=== PATIENT | female | born 1935 | race Caucasian/White ===

== ENCOUNTER 2018-06-21 22:34 | Emergency (ER) | payer BC, OTHER ==
[~2018-06-21] VITALS: Ht 165.1 cm; Wt 60.3 kg
[~2018-06-21 22:34] MED LIST: BISA-79 PO; DIPH1TAB PO; ESCI10TA55 PO; LIDO700A TP; MEGE400O PO; MEMA10TA PO; MIRT15TA7 PO; OXYC-451 PO; OXYC10TA59 PO; PANT40TA4 PO; TRAM50TA2 PO
[2018-06-21] MEDS ORDERED: FLUT50DI IH (22:48)
[2018-06-21] MEDS ORDERED: ACET-2154 PO (22:48)
[2018-06-21] MEDS ORDERED: DOCU-141 PO (22:48)
[2018-06-21] MEDS ORDERED: ALEN70TA45 PO (22:48)
[2018-06-21] MEDS ORDERED: MAGN400O6 PO (22:48)
[2018-06-21] MEDS ORDERED: DONE10TA44 PO (22:48)
[2018-06-21] MEDS ORDERED: ONDA4TAB5 PO (22:48)
[2018-06-21] MEDS ORDERED: OXYC-128 PO (22:48)
[2018-06-21] MEDS ORDERED: VITA400C24 PO (22:48)
[2018-06-21] MEDS ORDERED: ERGO500040 PO (22:48)
[2018-06-21] MEDS ORDERED: MIRT7.5T10 PO (22:48)
[2018-06-21] MEDS ORDERED: BISA10SU8 RC (22:48)
[2018-06-21] MEDS ORDERED: ASPI-612 PO (22:48)
[2018-06-21] MEDS ORDERED: FISH400C2 PO (22:48)
[2018-06-21] MEDS ORDERED: FEXO180T94 PO (22:48)
[2018-06-21] MEDS ORDERED: CICL6.6S5 TP (22:48)
[2018-06-21] MEDS ORDERED: CETI-102 PO (22:48)
[2018-06-21] MEDS ORDERED: DULO20CA PO (22:48)
[2018-06-21] MEDS ORDERED: CALC-20 PO (22:48)
[2018-06-21] MEDS ORDERED: MULT1TAB73 PO (22:48)
[2018-06-21] MEDS ORDERED: MEMA10TA PO (22:48)
--- NOTE | 2018-06-21 22:48 | NUR ---
PT BIB [facility] FROM [facility]. PER FACILITY REPORT, PT HAS BEEN HAVING GENERALIZED WEAKNESS W/ POOR PO INTAKE SINCE MONDAY (06/18/18). VSS. PT DENIES PAIN, C/P, SOB, N/V/D, DIZZINESS, HEADACHE.
--- NOTE | 2018-06-21 22:52 | NUR ---
TOBI CRUZ AT BEDSIDE FOR MSE.
[2018-06-21 23:26] LABS: BASOPHILS # (AUTO) 0.1 K/uL (0.0-8.0); BASOPHILS % (AUTO) 0.4 % (0.0-2.0); EOSINOPHILS # (AUTO) 0.2 K/uL (0.0-0.7); EOSINOPHILS % (AUTO) 1.3 % (0.0-7.0); HEMATOCRIT 40.8 % (31.2-41.9); HEMOGLOBIN 13.9 g/dL (10.9-14.3); LYMPHOCYTES # (AUTO) 4.1 K/uL (20.0-40.0); LYMPHOCYTES % (AUTO) 22.4 % (20.5-51.5); MEAN CORPUSCULAR HGB CONC 34 g/dL (32.3-35.6); MONOCYTES # (AUTO) 1.7 K/uL (2.0-10.0); MONOCYTES % (AUTO) 9.2 % (0.0-11.0); NEUTROPHILS # (AUTO) 12.1 K/uL (1.8-8.9); NEUTROPHILS % (AUTO) 66.7 % (38.5-71.5); PLATELET COUNT (AUTO) 252 K/uL (179-408); RED BLOOD CELL COUNT(AUTO) 4.48 MIL/uL (3.63-4.92); WHITE BLOOD COUNT (AUTO) 18.2 K/uL (3.8-11.8)
[2018-06-21 23:28] LABS: CARBON DIOXIDE 29 mmol/L (21-32); CHLORIDE 100 mmol/L (98-107); CREATININE 0.9 mg/dL (0.6-1.3); GLUCOSE 121 mg/dL (74-106); POTASSIUM 3.6 mmol/L (3.5-5.1); UREA NITROGEN, BLOOD 23 mg/dL (7-18)
[2018-06-22] MEDS ORDERED: IV NORMAL SALINE 500 ML BAG IV ONE (01:00)
[2018-06-22 01:14] LABS: *BILIRUBIN,URIN NEGATIVE (NEGATIVE); *BLOOD, URINE NEGATIVE (NEGATIVE); *CLARITY,URINE CLEAR (CLEAR); *COLOR,URINE YELLOW (YELLOW); *KETONES,URINE NEGATIVE (NEGATIVE); *PROTEIN,URINE NEGATIVE (NEGATIVE); LEUKOCYTE ESTERASE ,URINE TRACE (NEGATIVE); NITRITE, URINE NEGATIVE (NEGATIVE); UGLUCOSE NEGATIVE (NEGATIVE)
[2018-06-22 01:18] LABS: BACTERIA,URINE NONE SEEN /HPF (NONE SEEN); RBC,URINE 0-3 /HPF (0-3); SQUAMOUS EPITHELIAL CELL,UR FEW /HPF (NONE SEEN); WBC,URINE 0-3 /HPF (0-3)
--- NOTE | 2018-06-22 01:30 | NUR ---
CHILD SUPPORT SPECIALIST AT BEDSIDE.
[2018-06-22 01:46] LABS: BILIRUBIN,DIRECT 0.2 mg/dL (0.0-0.2); BILIRUBIN,TOTAL 0.6 mg/dL (0.2-1.0); TOTAL PROTEIN, SERUM 6.5 g/dL (6.4-8.2)
--- NOTE | 2018-06-22 02:48 | NUR ---
Pt sleeping in bed comfortably with eyes closed. No acute distress noted. Will ctm.
[2018-06-22 03:28] LABS: BASOPHILS # (AUTO) 0.1 K/uL (0.0-8.0); BASOPHILS % (AUTO) 0.4 % (0.0-2.0); EOSINOPHILS # (AUTO) 0.2 K/uL (0.0-0.7); EOSINOPHILS % (AUTO) 1.5 % (0.0-7.0); HEMATOCRIT 39.2 % (31.2-41.9); HEMOGLOBIN 13.2 g/dL (10.9-14.3); LYMPHOCYTES # (AUTO) 3.2 K/uL (20.0-40.0); LYMPHOCYTES % (AUTO) 21.4 % (20.5-51.5); MEAN CORPUSCULAR HEMOGLOBIN 30.8 uug (24.7-32.8); MEAN CORPUSCULAR HGB CONC 34 g/dL (32.3-35.6); MEAN CORPUSCULAR VOLUME 91.1 fL (75.5-95.3); MONOCYTES # (AUTO) 1.7 K/uL (2.0-10.0); MONOCYTES % (AUTO) 11.4 % (0.0-11.0); NEUTROPHILS # (AUTO) 9.7 K/uL (1.8-8.9); NEUTROPHILS % (AUTO) 65.3 % (38.5-71.5); PLATELET COUNT (AUTO) 209 K/uL (179-408); WHITE BLOOD COUNT (AUTO) 14.9 K/uL (3.8-11.8)
--- NOTE | 2018-06-22 03:45 | NUR ---
Called [facility] to transfer patient back to [facility]. ETA 90MINS. TRIP #[id number]
--- NOTE | 2018-06-22 04:07 | NUR ---
Pt pulled out IV site. Inner cannula intact.
--- NOTE | 2018-06-22 04:41 | NUR ---
Pt sleeping in bed with eyes closed. Respirations even + unlabored. NAD noted. Pending amb[facility] to transfer pt back to [facility].
--- NOTE | 2018-06-22 06:01 | NUR ---
[facility] unit [facility] here to transfer pt back to [facility]. Pt is awake, alert, oriented. Patient discharged to home in stable conditon. Written and verbal after care instructions given. Patient verbalizes understanding of instructions.
[2018-06-22 06:03] VITALS: BP 142/78
[2018-06-22] MEDS ORDERED: ERGO2000 PO (23:49)
[2018-06-22] MEDS ORDERED: BISA10SU61 RC (23:49)
[2018-06-22] MEDS ORDERED: FEXO180T94 PO (23:49)
[2018-06-22] MEDS ORDERED: ONDA4TAB5 PO (23:49)
[2018-06-23] MEDS ORDERED: FLUT9.9S NS (14:55)
== END 2018-06-22 06:05 | disposition home or self-care (01) ==
LOC: ER 22:36
DX: E86.0 Dehydration (principal); Z90.710 Acquired absence of both cervix and uterus; Z79.82 Long term (current) use of aspirin; Z79.51 Long term (current) use of inhaled steroids; Z79.891 Long term (current) use of opiate analgesic; Z79.899 Other long term (current) drug therapy
CPT/HCPCS: 36415; 71045; 85025; 93005; A4663; J7040

== ENCOUNTER 2018-06-22 20:50 | Inpatient (IN) | payer BC, OTHER ==
[~2018-06-22] VITALS: Ht 152.4 cm; Wt 59.4 kg
[~2018-06-22 20:50] MED LIST changes: +ACET-2154 PO; +ALEN70TA45 PO; +ASPI-612 PO; +BISA10SU8 RC; +CALC-20 PO; +CETI-102 PO; +CICL6.6S5 TP; +DOCU-141 PO; +DONE10TA44 PO; +DULO20CA PO; +ERGO500040 PO; +FEXO180T94 PO; +FISH400C2 PO; +FLUT50DI IH; +MAGN400O6 PO; +MIRT7.5T10 PO; +MULT1TAB73 PO; +ONDA4TAB5 PO; +OXYC-128 PO; +VITA400C24 PO
[2018-06-22 21:55] LABS: BASOPHILS # (AUTO) 0.1 K/uL (0.0-8.0); BASOPHILS % (AUTO) 0.4 % (0.0-2.0); EOSINOPHILS % (AUTO) 0.3 % (0.0-7.0); HEMATOCRIT 44.4 % (31.2-41.9); HEMOGLOBIN 15.2 g/dL (10.9-14.3); LYMPHOCYTES # (AUTO) 1.9 K/uL (20.0-40.0); LYMPHOCYTES % (AUTO) 12.8 % (20.5-51.5); MEAN CORPUSCULAR HEMOGLOBIN 31.3 uug (24.7-32.8); MEAN CORPUSCULAR HGB CONC 34 g/dL (32.3-35.6); MEAN CORPUSCULAR VOLUME 91.4 fL (75.5-95.3); MONOCYTES # (AUTO) 1.1 K/uL (2.0-10.0); MONOCYTES % (AUTO) 7.8 % (0.0-11.0); NEUTROPHILS # (AUTO) 11.5 K/uL (1.8-8.9); NEUTROPHILS % (AUTO) 78.7 % (38.5-71.5); PLATELET COUNT (AUTO) 285 K/uL (179-408); RED BLOOD CELL COUNT(AUTO) 4.86 MIL/uL (3.63-4.92); WHITE BLOOD COUNT (AUTO) 14.6 K/uL (3.8-11.8)
[2018-06-22 22:04] LABS: CARBON DIOXIDE 30 mmol/L (21-32); CHLORIDE 98 mmol/L (98-107); CREATININE 0.9 mg/dL (0.6-1.3); GLUCOSE 156 mg/dL (74-106); POTASSIUM 3.9 mmol/L (3.5-5.1); UREA NITROGEN, BLOOD 23 mg/dL (7-18)
[2018-06-22 22:10] LABS: ALANINE AMINOTRANSFERASE 22 U/L (14-59); ALKALINE PHOSPHATASE 81 U/L (50-136); ASPARTATE AMINOTRANSFERASE 18 U/L (15-37); BILIRUBIN,DIRECT 0.2 mg/dL (0.0-0.2); BILIRUBIN,TOTAL 0.6 mg/dL (0.2-1.0); TOTAL PROTEIN, SERUM 7.6 g/dL (6.4-8.2)
[2018-06-22 22:23] LABS: *BILIRUBIN,URIN NEGATIVE (NEGATIVE); *BLOOD, URINE NEGATIVE (NEGATIVE); *CLARITY,URINE CLEAR (CLEAR); *COLOR,URINE YELLOW (YELLOW); *KETONES,URINE 1+ (NEGATIVE); *PROTEIN,URINE NEGATIVE (NEGATIVE); LEUKOCYTE ESTERASE ,URINE NEGATIVE (NEGATIVE); NITRITE, URINE NEGATIVE (NEGATIVE); UGLUCOSE NEGATIVE (NEGATIVE)
[2018-06-22 22:28] LABS: MUCUS,URINE MANY /LPF (0-FEW); RBC,URINE 0-3 /HPF (0-3); WBC,URINE 0-3 /HPF (0-3)
[2018-06-22] MEDS ORDERED: ONDA4TAB5 PO (23:49)
[2018-06-22] MEDS ORDERED: ERGO2000 PO (23:49)
[2018-06-22] MEDS ORDERED: FEXO180T94 PO (23:49)
[2018-06-22] MEDS ORDERED: BISA10SU61 RC (23:49)
[2018-06-23 01:00] VITALS: BP 166/73
[2018-06-23 01:15] VITALS: BP 137/90
[2018-06-23 05:06] VITALS: BP 138/73
[2018-06-23] MEDS ORDERED: ONDANSETRON HCL 4 MG TABLET PO PRN (09:30)
[2018-06-23] MEDS ORDERED: TRAMADOL HCL 50 MG TABLET PO PRN (09:30)
[2018-06-23] MEDS: VITAMIN E 400 UNITS CAPSULE PO SCH ×2 (09:30→13:56)
[2018-06-23] MEDS ORDERED: BISACODYL 10 MG SUPP.RECT RC PRN (09:30)
[2018-06-23] MEDS ORDERED: OXYCODONE/APAP 5-325 MG TABLET PO PRN ×3 (09:30→15:30)
[2018-06-23] MEDS ORDERED: FEXOFENADINE HCL 180 MG TABLET PO PRN (09:30)
[2018-06-23] MEDS ORDERED: MAGNESIUM HYDROXIDE 30 ML LIQUID UDC PO PRN (09:30)
[2018-06-23] MEDS ORDERED: ACETAMINOPHEN 325 MG TABLET PO PRN (09:30)
[2018-06-23] MEDS ORDERED: HOME MED MISCELLANEOUS XX SCH (10:15)
[2018-06-23 10:25] LABS: BASOPHILS # (AUTO) 0.1 K/uL (0.0-8.0); BASOPHILS % (AUTO) 0.4 % (0.0-2.0); EOSINOPHILS % (AUTO) 0.2 % (0.0-7.0); HEMATOCRIT 43.9 % (31.2-41.9); HEMOGLOBIN 14.8 g/dL (10.9-14.3); LYMPHOCYTES # (AUTO) 2.1 K/uL (20.0-40.0); LYMPHOCYTES % (AUTO) 9.9 % (20.5-51.5); MEAN CORPUSCULAR HEMOGLOBIN 30.7 uug (24.7-32.8); MEAN CORPUSCULAR HGB CONC 34 g/dL (32.3-35.6); MEAN CORPUSCULAR VOLUME 91.2 fL (75.5-95.3); MONOCYTES % (AUTO) 9.7 % (0.0-11.0); NEUTROPHILS # (AUTO) 16.8 K/uL (1.8-8.9); NEUTROPHILS % (AUTO) 79.8 % (38.5-71.5); PLATELET COUNT (AUTO) 283 K/uL (179-408); RED BLOOD CELL COUNT(AUTO) 4.81 MIL/uL (3.63-4.92); WHITE BLOOD COUNT (AUTO) 21.1 K/uL (3.8-11.8)
[2018-06-23] MEDS: DULOXETINE 20 MG CAPSULE.DR PO SCH (10:29)
[2018-06-23] MEDS: MEMANTINE HCL 10 MG TABLET PO SCH (10:29)
[2018-06-23] MEDS: CALCIUM CARB/VITAMIN D 500MG-200UNITS TABLET PO SCH (10:29)
[2018-06-23] MEDS: ASPIRIN 325 MG TABLET PO SCH (10:29)
[2018-06-23] MEDS: DONEPEZIL 10 MG TABLET PO SCH ×2 (10:30→17:16)
[2018-06-23] MEDS: CETIRIZINE HCL 10 MG TABLET PO SCH (10:30)
[2018-06-23] MEDS: MULTIVITAMINS,THERAPEUTIC TABLET PO SCH (10:30)
[2018-06-23] MEDS: PANTOPRAZOLE SODIUM 40 MG TABLET.DR PO SCH (10:32)
[2018-06-23 11:08] VITALS: BP 131/79
[2018-06-23 11:23] LABS: CARBON DIOXIDE 27 mmol/L (21-32); CHLORIDE 98 mmol/L (98-107); CREATININE 0.7 mg/dL (0.6-1.3); GLUCOSE 122 mg/dL (74-106); MAGNESIUM 2.1 mg/dL (1.8-2.4); POTASSIUM 3.3 mmol/L (3.5-5.1); UREA NITROGEN, BLOOD 24 mg/dL (7-18)
[2018-06-23] MEDS ORDERED: FLUT9.9S NS (14:55)
[2018-06-23 15:36] VITALS: BP 150/85
[2018-06-23] MEDS: FLUTICASONE PROP NASAL SPRAY 16 GM BOTTLE NS SCH (17:16)
[2018-06-23] MEDS ORDERED: MIRTAZAPINE 15 MG TABLET PO SCH (18:00)
[2018-06-23] MEDS: MIRTAZAPINE 15 MG TABLET PO SCH (21:02)
[2018-06-23 21:09] VITALS: BP 130/70
[2018-06-23] MEDS ORDERED: CEFEPIME HCL 1 G VIAL ONE (22:04)
[2018-06-23] MEDS: CEFEPIME HCL 1 G in IV DEXTROSE 5% 50 ML IV SCH (22:32)
[2018-06-24 05:59] VITALS: BP 106/76
[2018-06-24] MEDS ORDERED: CEFEPIME HCL 1 G VIAL ONE (06:02)
[2018-06-24] MEDS: CEFEPIME HCL 1 G in IV DEXTROSE 5% 50 ML IV SCH ×2 (06:21→17:22)
[2018-06-24] MEDS: PANTOPRAZOLE SODIUM 40 MG TABLET.DR PO SCH (06:21)
[2018-06-24 07:56] LABS: BASOPHILS % (AUTO) 0.2 % (0.0-2.0); EOSINOPHILS % (AUTO) 0.3 % (0.0-7.0); HEMOGLOBIN 13.1 g/dL (10.9-14.3); LYMPHOCYTES # (AUTO) 2.3 K/uL (20.0-40.0); LYMPHOCYTES % (AUTO) 15.4 % (20.5-51.5); MEAN CORPUSCULAR HEMOGLOBIN 30.5 uug (24.7-32.8); MEAN CORPUSCULAR HGB CONC 33 g/dL (32.3-35.6); MEAN CORPUSCULAR VOLUME 92.2 fL (75.5-95.3); MONOCYTES # (AUTO) 2.1 K/uL (2.0-10.0); MONOCYTES % (AUTO) 13.6 % (0.0-11.0); NEUTROPHILS # (AUTO) 10.7 K/uL (1.8-8.9); NEUTROPHILS % (AUTO) 70.5 % (38.5-71.5); PLATELET COUNT (AUTO) 260 K/uL (179-408); RED BLOOD CELL COUNT(AUTO) 4.28 MIL/uL (3.63-4.92)
[2018-06-24 08:07] LABS: CARBON DIOXIDE 27 mmol/L (21-32); CHLORIDE 103 mmol/L (98-107); CREATININE 0.6 mg/dL (0.6-1.3); GLUCOSE 119 mg/dL (74-106); PHOSPHOROUS 2.9 mg/dL (2.5-4.9); POTASSIUM 3.4 mmol/L (3.5-5.1); UREA NITROGEN, BLOOD 25 mg/dL (7-18)
[2018-06-24] MEDS: FLUTICASONE PROP NASAL SPRAY 16 GM BOTTLE NS SCH ×3 (09:00→17:00)
[2018-06-24 09:15] LABS: HEMATOCRIT 39.5 % (31.2-41.9); WHITE BLOOD COUNT (AUTO) 15.2 K/uL (3.8-11.8)
[2018-06-24] MEDS: ASPIRIN 325 MG TABLET PO SCH (09:42)
[2018-06-24] MEDS: DONEPEZIL 10 MG TABLET PO SCH ×2 (09:42→17:22)
[2018-06-24] MEDS: CALCIUM CARB/VITAMIN D 500MG-200UNITS TABLET PO SCH (09:43)
[2018-06-24] MEDS: CETIRIZINE HCL 10 MG TABLET PO SCH (09:43)
[2018-06-24] MEDS: DULOXETINE 20 MG CAPSULE.DR PO SCH (09:43)
[2018-06-24] MEDS: MEMANTINE HCL 10 MG TABLET PO SCH (09:43)
[2018-06-24] MEDS: MULTIVITAMINS,THERAPEUTIC TABLET PO SCH (09:43)
[2018-06-24] MEDS ORDERED: POTASSIUM CHLORIDE 20 MEQ TAB.PRT.SR PO ONE (10:30)
[2018-06-24 11:03] VITALS: BP 105/55
[2018-06-24 15:09] VITALS: BP 99/40
[2018-06-24] MEDS ORDERED: METOCLOPRAMIDE HCL 10 MG/2 ML VIAL IV PRN (15:15)
[2018-06-24 15:31] LABS: *CREATININE,URINE 196.5 mg/dL (30-125); *URINE TOTAL PROTEIN RANDOM 37.8 mg/dL (<150/24HR)
[2018-06-24 20:00] VITALS: BP 108/55
[2018-06-24] MEDS: MIRTAZAPINE 15 MG TABLET PO SCH (20:46)
[2018-06-24] MEDS: IV NS 1000 ML 1,000 ML IV PRN (20:47)
[2018-06-25 04:00] VITALS: BP 106/56
[2018-06-25] MEDS: CEFEPIME HCL 1 G in IV DEXTROSE 5% 50 ML IV SCH (05:30)
[2018-06-25 06:22] LABS: BASOPHILS % (AUTO) 0.5 % (0.0-2.0); EOSINOPHILS # (AUTO) 0.2 K/uL (0.0-0.7); EOSINOPHILS % (AUTO) 2.1 % (0.0-7.0); HEMATOCRIT 37.3 % (31.2-41.9); HEMOGLOBIN 12.4 g/dL (10.9-14.3); LYMPHOCYTES # (AUTO) 2.9 K/uL (20.0-40.0); LYMPHOCYTES % (AUTO) 32.9 % (20.5-51.5); MEAN CORPUSCULAR HEMOGLOBIN 31.1 uug (24.7-32.8); MEAN CORPUSCULAR HGB CONC 33 g/dL (32.3-35.6); MEAN CORPUSCULAR VOLUME 93.4 fL (75.5-95.3); MONOCYTES # (AUTO) 1.1 K/uL (2.0-10.0); MONOCYTES % (AUTO) 12.8 % (0.0-11.0); NEUTROPHILS # (AUTO) 4.6 K/uL (1.8-8.9); NEUTROPHILS % (AUTO) 51.7 % (38.5-71.5); PLATELET COUNT (AUTO) 236 K/uL (179-408); RED BLOOD CELL COUNT(AUTO) 3.99 MIL/uL (3.63-4.92); WHITE BLOOD COUNT (AUTO) 8.9 K/uL (3.8-11.8)
[2018-06-25 06:32] LABS: CARBON DIOXIDE 29 mmol/L (21-32); CHLORIDE 107 mmol/L (98-107); CREATININE 0.6 mg/dL (0.6-1.3); GLUCOSE 86 mg/dL (74-106); POTASSIUM 3.9 mmol/L (3.5-5.1); UREA NITROGEN, BLOOD 20 mg/dL (7-18)
[2018-06-25] MEDS: MULTIVITAMINS,THERAPEUTIC TABLET PO SCH (08:46)
[2018-06-25] MEDS: DONEPEZIL 10 MG TABLET PO SCH ×2 (08:46→16:36)
[2018-06-25] MEDS: PANTOPRAZOLE SODIUM 40 MG VIAL IV SCH (08:46)
[2018-06-25] MEDS: ASPIRIN 325 MG TABLET PO SCH (08:47)
[2018-06-25] MEDS: DULOXETINE 20 MG CAPSULE.DR PO SCH (08:47)
[2018-06-25] MEDS: CALCIUM CARB/VITAMIN D 500MG-200UNITS TABLET PO SCH (08:47)
[2018-06-25] MEDS: CETIRIZINE HCL 10 MG TABLET PO SCH (08:47)
[2018-06-25] MEDS: MEMANTINE HCL 10 MG TABLET PO SCH (08:47)
[2018-06-25] MEDS: VITAMIN E 400 UNITS CAPSULE PO SCH (08:48)
[2018-06-25] MEDS: FLUTICASONE PROP NASAL SPRAY 16 GM BOTTLE NS SCH ×3 (08:48→16:36)
[2018-06-25 11:47] VITALS: BP 104/50
[2018-06-25 15:58] VITALS: BP 104/46
[2018-06-25] MEDS ORDERED: NEUTRA PHOS PACKET PO ONE (17:30)
[2018-06-25 20:00] VITALS: BP 95/53
[2018-06-25] MEDS: MIRTAZAPINE 15 MG TABLET PO SCH (21:12)
[2018-06-26] MEDS: IV NS 1000 ML 1,000 ML IV PRN (00:57)
[2018-06-26 06:21] VITALS: BP 107/40
[2018-06-26 07:16] LABS: CARBON DIOXIDE 27 mmol/L (21-32); CHLORIDE 106 mmol/L (98-107); CREATININE 0.6 mg/dL (0.6-1.3); GLUCOSE 92 mg/dL (74-106); PHOSPHOROUS 2.4 mg/dL (2.5-4.9); POTASSIUM 3.2 mmol/L (3.5-5.1); UREA NITROGEN, BLOOD 12 mg/dL (7-18)
[2018-06-26] MEDS ORDERED: CEFEPIME HCL 1 G in IV DEXTROSE 5% 50 ML IV SCH (08:00)
[2018-06-26] MEDS: PANTOPRAZOLE SODIUM 40 MG VIAL IV SCH (08:36)
[2018-06-26] MEDS: ASPIRIN 325 MG TABLET PO SCH (08:36)
[2018-06-26] MEDS: CETIRIZINE HCL 10 MG TABLET PO SCH (08:36)
[2018-06-26] MEDS: DULOXETINE 20 MG CAPSULE.DR PO SCH (08:36)
[2018-06-26] MEDS: CALCIUM CARB/VITAMIN D 500MG-200UNITS TABLET PO SCH (08:37)
[2018-06-26] MEDS: DONEPEZIL 10 MG TABLET PO SCH ×2 (08:37→16:59)
[2018-06-26] MEDS: MEMANTINE HCL 10 MG TABLET PO SCH (08:37)
[2018-06-26] MEDS: MULTIVITAMINS,THERAPEUTIC TABLET PO SCH (08:37)
[2018-06-26] MEDS: VITAMIN E 400 UNITS CAPSULE PO SCH (08:38)
[2018-06-26] MEDS: FLUTICASONE PROP NASAL SPRAY 16 GM BOTTLE NS SCH ×2 (08:39→16:59)
[2018-06-26] MEDS: POTASSIUM PHOSPHATE MM 5 MMOL in IV DEXTROSE 5% 100 ML IV SCH ×2 (10:05→13:17)
[2018-06-26 12:16] VITALS: BP 118/52
[2018-06-26 15:32] VITALS: BP 142/65
[2018-06-26 19:00] VITALS: BP 117/57
[2018-06-26] MEDS: MIRTAZAPINE 15 MG TABLET PO SCH (20:27)
[2018-06-27 04:00] VITALS: BP 126/62
[2018-06-27] MEDS: IV NS 1000 ML 1,000 ML IV PRN (04:16)
[2018-06-27] MEDS ORDERED: PANTOPRAZOLE SODIUM 40 MG TABLET.DR PO SCH (07:00)
[2018-06-27] MEDS: ASPIRIN 325 MG TABLET PO SCH (08:30)
[2018-06-27] MEDS: DULOXETINE 20 MG CAPSULE.DR PO SCH (08:30)
[2018-06-27] MEDS: MEMANTINE HCL 10 MG TABLET PO SCH (08:31)
[2018-06-27] MEDS: CALCIUM CARB/VITAMIN D 500MG-200UNITS TABLET PO SCH (08:31)
[2018-06-27] MEDS: FLUTICASONE PROP NASAL SPRAY 16 GM BOTTLE NS SCH (08:31)
[2018-06-27] MEDS: CETIRIZINE HCL 10 MG TABLET PO SCH (08:31)
[2018-06-27] MEDS: VITAMIN E 400 UNITS CAPSULE PO SCH (08:31)
[2018-06-27] MEDS: MULTIVITAMINS,THERAPEUTIC TABLET PO SCH (08:31)
[2018-06-27] MEDS: DONEPEZIL 10 MG TABLET PO SCH (08:31)
[2018-06-27 11:22] VITALS: BP 144/66
[2018-06-27 15:32] VITALS: BP 121/48
[2018-06-29] MEDS ORDERED: ERGOCALCIFEROL 50,000 UNIT CAPSULE PO SCH (09:00)
[2018-07-01] MEDS ORDERED: ALENDRONATE SODIUM 70 MG TABLET PO SCH (06:00)
== END 2018-06-27 16:50 | DRG 871 ==
LOC: ER 20:53 → MED 23:40
PROVIDERS: ADMIT Internal Medicine; ATTEND Internal Medicine
DX: A41.9 Sepsis, unspecified organism (principal); G92 Toxic encephalopathy; N39.0 Urinary tract infection, site not specified; G30.9 Alzheimer's disease, unspecified; F02.80 Dementia in other diseases classified elsewhere, unspecified severity, without behavioral disturbance, psychotic disturbance, mood disturbance, and anxiety; F32.9 Major depressive disorder, single episode, unspecified; M81.0 Age-related osteoporosis without current pathological fracture; E87.6 Hypokalemia; I25.10 Atherosclerotic heart disease of native coronary artery without angina pectoris; Z90.710 Acquired absence of both cervix and uterus; R33.9 Retention of urine, unspecified; R11.2 Nausea with vomiting, unspecified; I10 Essential (primary) hypertension
CPT/HCPCS: 36415; 70030-TC; 70450; 71045; 76700; 83605; 83690; 83735; 84100; 84156; 84300; 85025; 87040; 87086; 93005; 97110; 97116; 97530; A4217; A4663; C1758; C9113; G0378; J0692; J3490; J3535; J7030; J7060; Q0162

== ENCOUNTER 2019-10-03 17:01 | Emergency (ER) | payer BC, MEDICAID ==
[~2019-10-03] VITALS: Ht 152.4 cm; Wt 61.2 kg
--- NOTE | 2019-10-03 17:08 | NUR ---
Dr Alcantar at the bedside for MSE.
--- NOTE | 2019-10-03 17:44 | NUR ---
Patient is resting comfortably in bed with eyes closed, NAD noted.
[2019-10-03 17:46] LABS: BASOPHILS # (AUTO) 0.1 K/uL (0.0-8.0); BASOPHILS % (AUTO) 0.7 % (0.0-2.0); EOSINOPHILS # (AUTO) 0.2 K/uL (0.0-0.7); EOSINOPHILS % (AUTO) 1.8 % (0.0-7.0); HEMATOCRIT 43.7 % (31.2-41.9); HEMOGLOBIN 14.6 g/dL (10.9-14.3); LYMPHOCYTES # (AUTO) 2.8 K/uL (20.0-40.0); LYMPHOCYTES % (AUTO) 31.1 % (20.5-51.5); MEAN CORPUSCULAR HEMOGLOBIN 31.1 uug (24.7-32.8); MEAN CORPUSCULAR HGB CONC 34 g/dL (32.3-35.6); MEAN CORPUSCULAR VOLUME 92.8 fL (75.5-95.3); MONOCYTES # (AUTO) 0.6 K/uL (2.0-10.0); MONOCYTES % (AUTO) 6.4 % (0.0-11.0); NEUTROPHILS # (AUTO) 5.5 K/uL (1.8-8.9); PLATELET COUNT (AUTO) 244 K/uL (179-408); RED BLOOD CELL COUNT(AUTO) 4.71 MIL/uL (3.63-4.92); WHITE BLOOD COUNT (AUTO) 9.2 K/uL (3.8-11.8)
[2019-10-03 17:54] LABS: CREATININE 0.8 mg/dL (0.6-1.3)
[2019-10-03 18:07] LABS: BILIRUBIN,DIRECT 0.1 mg/dL (0.0-0.2); BILIRUBIN,TOTAL 0.4 mg/dL (0.2-1.0); TOTAL PROTEIN, SERUM 7.8 g/dL (6.4-8.2)
--- NOTE | 2019-10-03 18:22 | NUR ---
Called Megan for transfer back to pt's facility, ETA 30 min and trip #[id number].
--- NOTE | 2019-10-03 18:57 | NUR ---
Megan notify me regarding transfer time change to 1999.
--- NOTE | 2019-10-03 19:00 | NUR ---
Handsoff report given to overnight stockernight workerRosie.
--- NOTE | 2019-10-03 19:58 | NUR ---
eta FOR SET AND EXHIBIT DESIGNER IS 2100
--- NOTE | 2019-10-03 21:15 | NUR ---
Patient discharged to home in stable conditon. Written and verbal after care instructions given. Patient picked up by [facility] unit [facility]. Patient ambulated to [facility] in stable gait. All belongings with patient
[2019-10-03 21:33] VITALS: BP 134/84
== END 2019-10-03 21:15 | disposition home or self-care (01) ==
LOC: ER 17:01
DX: R05 Cough (principal); Z79.899 Other long term (current) drug therapy; Z79.82 Long term (current) use of aspirin; Z79.51 Long term (current) use of inhaled steroids
CPT/HCPCS: 36415; 70030-TC; 71045; 85025; 93005; A4663